=== PATIENT | male | born 1970 | race Caucasian/White ===

== ENCOUNTER 2023-10-13 10:19 | Inpatient (IN) | payer MEDICARE ==
[~2023-10-13] VITALS: Ht 180.3 cm; Wt 62.1 kg
[2023-10-13] MEDS ORDERED: PANT40TA49 PO (10:52)
[2023-10-13] MEDS ORDERED: HYDR-3976 PO (10:52)
[2023-10-13] MEDS ORDERED: LOSA25TA27 PO (10:52)
[2023-10-13 11:13] VITALS: O2SAT 100
[2023-10-13 11:24] LABS: POTASSIUM 3.7 mmol/L (3.5-5.1)
[2023-10-13 11:30] LABS: BASOPHILS % (AUTO) 0.3 % (0.0-2.0); EOSINOPHILS % (AUTO) 0.3 % (0.0-6.0); HEMATOCRIT 29 % (39-51); HEMOGLOBIN 9.6 g/dL (13.5-17.5); LYMPHOCYTES # (AUTO) 0.3 K/uL (0.8-4.8); LYMPHOCYTES % (AUTO) 7.5 % (20.0-44.0); MEAN CORPUSCULAR HEMOGLOBIN 36 PG (26.0-33.0); MEAN CORPUSCULAR HGB CONC 33 g/dl (31.0-36.0); MEAN CORPUSCULAR VOLUME 108 fL (80-96); MONOCYTES # (AUTO) 0.2 K/uL (0.1-1.30); MONOCYTES % (AUTO) 5.3 % (2.0-12.0); NEUTROPHILS # (AUTO) 3.5 K/uL (1.8-8.9); NEUTROPHILS % (AUTO) 86.6 % (43.0-81.0); PLATELET COUNT (AUTO) 124 K/uL (150-450); RED BLOOD CELL COUNT(AUTO) 2.71 MIL/uL (4.5-6.0); RED CELL DISTRIBUTION WIDTH 16.6 % (11.5-15.0); WHITE BLOOD COUNT (AUTO) 4.1 K/uL (4.3-11.0)
[2023-10-13] MEDS ORDERED: IOHEXOL 50 ML IV ONE ×2 (11:31→16:29)
[2023-10-13] MEDS ORDERED: LIDOCAINE 1% INJ 50 ML MDV IJ ONE (11:31)
[2023-10-13] MEDS ORDERED: HEPARIN SODIUM, PORCINE 1,000 UNIT/ML VIAL ONE ×3 (11:31→18:03)
[2023-10-13] MEDS ORDERED: ANESTHESIA TRAY IN PYXIS 1 EA TRAY MC ONE (11:31)
[2023-10-13 11:32] LABS: INR 1.3 (0.91-1.10); PARTIAL THROMBOPLASTIN TIME 36.7 SEC (24.3-34.3); PROTHROMBIN TIME 13.5 SECS (9.2-11.1)
[2023-10-13 11:33] LABS: CREATININE 7.8 mg/dL (0.6-1.3)
[2023-10-13 12:19] LABS: ANISOCYTOSIS 1+; EOSINOPHILS % (MANUAL) 1 % (0-4); LYMPHOCYTES % (MANUAL) 4 % (16-48); MONOCYTES % (MANUAL) 4 % (0-11.0); NEUTROPHILS % (MANUAL) 91 (42-76); PLATELET ESTIMATE DECREASED
[2023-10-13] MEDS ORDERED: MAG HYDROX/AL HYDROX/SIMETH 30 ML UDC PO PRN (13:00)
[2023-10-13] MEDS ORDERED: ACETAMINOPHEN 325 MG TABLET PO PRN (13:00)
[2023-10-13] MEDS ORDERED: MAGNESIUM HYDROXIDE 30 ML UDC PO PRN (13:00)
[2023-10-13] MEDS ORDERED: ONDANSETRON HCL/PF 4 MG/2 ML VIAL IVP PRN (13:00)
[2023-10-13] MEDS ORDERED: Z GUARD REMEDY 4 OZ OINT TP PRN (13:00)
[2023-10-13] MEDS ORDERED: GELATIN SPONGE,ABSORBABLE 1 SPONGE SPONGE TP ONE (15:32)
[2023-10-13] MEDS ORDERED: HYDROCODONE/APAP 5/325MG TABLET PO SCH (17:00)
[2023-10-13] MEDS ORDERED: BUPIVACAINE 0.5 % PF 150 MG/30 ML VIAL ONE (17:43)
[2023-10-13] MEDS ORDERED: FENTANYL PF 100MCG/2ML AMPUL ONE ×2 (18:27→18:47)
[2023-10-13 19:55] LABS: BASOPHILS % (AUTO) 0.4 % (0.0-2.0); HEMATOCRIT 36 % (39-51); HEMOGLOBIN 11.1 g/dL (13.5-17.5); LYMPHOCYTES # (AUTO) 0.3 K/uL (0.8-4.8); LYMPHOCYTES % (AUTO) 3.7 % (20.0-44.0); MEAN CORPUSCULAR HEMOGLOBIN 35 PG (26.0-33.0); MEAN CORPUSCULAR HGB CONC 31 g/dl (31.0-36.0); MEAN CORPUSCULAR VOLUME 113 fL (80-96); MONOCYTES # (AUTO) 0.2 K/uL (0.1-1.30); MONOCYTES % (AUTO) 2.2 % (2.0-12.0); NEUTROPHILS # (AUTO) 6.6 K/uL (1.8-8.9); NEUTROPHILS % (AUTO) 93.7 % (43.0-81.0); PLATELET COUNT (AUTO) 142 K/uL (150-450); RED BLOOD CELL COUNT(AUTO) 3.16 MIL/uL (4.5-6.0); RED CELL DISTRIBUTION WIDTH 17.4 % (11.5-15.0)
[2023-10-13 20:00] VITALS: BP 121/87; TEMP 97.6; O2SAT 98
[2023-10-13 20:03] LABS: POTASSIUM 3.8 mmol/L (3.5-5.1)
[2023-10-13 20:10] LABS: CREATININE 7.9 mg/dL (0.6-1.3)
[2023-10-13] MEDS: oxyCODONE/APAP (5/325 MG) 1 UDTAB TABLET PO PRN (20:19)
[2023-10-13] MEDS: SODIUM BICARBONATE SYR 50 MEQ/50 ML DISP.SYRIN IV ONE (20:46)
[2023-10-13 20:58] LABS: BAND % (MANUAL) 1 % (0.0-5.0); LYMPHOCYTES % (MANUAL) 8 % (16-48); MONOCYTES % (MANUAL) 4 % (0-11.0); NEUTROPHILS % (MANUAL) 87 (42-76); PLATELET ESTIMATE ADEQUATE
[2023-10-13 20:59] LABS: ANISOCYTOSIS 1+; OVALOCYTES RARE; ROULEAUX 1+
[2023-10-13] MEDS: MORPHINE SULFATE INJ 4 MG/ML DISP.SYRIN IV PRN (21:19)
[2023-10-13] MEDS: ANCEF 1 GM/50 ML D5W IV SCH (22:54)
[2023-10-14 07:22] LABS: BASOPHILS % (AUTO) 0.2 % (0.0-2.0); EOSINOPHILS % (AUTO) 0.3 % (0.0-6.0); HEMATOCRIT 28 % (39-51); HEMOGLOBIN 9.4 g/dL (13.5-17.5); LYMPHOCYTES # (AUTO) 0.3 K/uL (0.8-4.8); MEAN CORPUSCULAR HEMOGLOBIN 36 PG (26.0-33.0); MEAN CORPUSCULAR HGB CONC 34 g/dl (31.0-36.0); MEAN CORPUSCULAR VOLUME 106 fL (80-96); MONOCYTES # (AUTO) 0.2 K/uL (0.1-1.30); MONOCYTES % (AUTO) 5.7 % (2.0-12.0); NEUTROPHILS # (AUTO) 3.7 K/uL (1.8-8.9); NEUTROPHILS % (AUTO) 87.8 % (43.0-81.0); PLATELET COUNT (AUTO) 114 K/uL (150-450); RED BLOOD CELL COUNT(AUTO) 2.61 MIL/uL (4.5-6.0); WHITE BLOOD COUNT (AUTO) 4.2 K/uL (4.3-11.0)
[2023-10-14 07:52] LABS: ALBUMIN 2.2 g/dL (3.4-5.0); BILIRUBIN,TOTAL 0.3 mg/dL (0.2-1.0); CALCIUM, SERUM 6.7 mg/dL (8.5-10.1); POTASSIUM 2.9 mmol/L (3.5-5.1); TOTAL PROTEIN, SERUM 6.1 g/dL (6.4-8.2)
[2023-10-14 08:00] VITALS: BP 118/85; TEMP 97.7; O2SAT 100
[2023-10-14 08:31] VITALS: BP 118/85
[2023-10-14] MEDS: LOSARTAN POTASSIUM 25 MG TABLET PO SCH (08:31)
[2023-10-14] MEDS: PANTOPRAZOLE 40 MG TABLET.DR PO SCH (08:31)
[2023-10-14] MEDS ORDERED: MORPHINE SULFATE INJ 2 MG/ML DISP.SYRIN IM ONE (11:00)
[2023-10-14] MEDS: POTASSIUM CHLORIDE 20 MEQ TAB.PRT.SR PO ONE (11:24)
[2023-10-14] MEDS: MORPHINE SULFATE INJ 2 MG/ML DISP.SYRIN IV ONE (11:24)
[2023-10-14 11:49] LABS: ANISOCYTOSIS 1+; LYMPHOCYTES % (MANUAL) 6 % (16-48); MONOCYTES % (MANUAL) 4 % (0-11.0); NEUTROPHILS % (MANUAL) 90 (42-76); PLATELET ESTIMATE DECREASED
[2023-10-15 06:07] LABS: HEPATITIS B SURFACE AB Reactive (.)
== END 2023-10-14 14:15 | disposition home or self-care (01) | DRG 252 ==
LOC: ER 10:19 → MED 13:20
PROVIDERS: ADMIT Internal Medicine; ATTEND Student in an Organized Health Care Education/Training Program
PROC: 5A1D70Z Performance of Urinary Filtration, Intermittent, Less than 6 Hours Per Day (ICD-10-PCS; principal; 2023-10-13)
PROC: 04CK0ZZ Extirpation of Matter from Right Femoral Artery, Open Approach (ICD-10-PCS; 2023-10-13)
PROC: 04WY0JZ Revision of Synthetic Substitute in Lower Artery, Open Approach (ICD-10-PCS; 2023-10-13)
PROC: B51WYZZ Fluoroscopy of Dialysis Shunt/Fistula using Other Contrast (ICD-10-PCS; 2023-10-13)
PROC: 067 Lower Veins, Dilation (ICD-10-PCS; 2023-10-14)
PROC: 0JHL3XZ Insertion of Tunneled Vascular Access Device into Right Upper Leg Subcutaneous Tissue and Fascia, Percutaneous Approach (ICD-10-PCS; 2023-10-14)
PROC: 06HM33Z Insertion of Infusion Device into Right Femoral Vein, Percutaneous Approach (ICD-10-PCS; 2023-10-14)
PROC: B54BZZA Ultrasonography of Right Lower Extremity Veins, Guidance (ICD-10-PCS; 2023-10-14)
DX: T82.590A Other mechanical complication of surgically created arteriovenous fistula, initial encounter (principal); N18.6 End stage renal disease; E87.1 Hypo-osmolality and hyponatremia; I12.0 Hypertensive chronic kidney disease with stage 5 chronic kidney disease or end stage renal disease; D61.818 Other pancytopenia; J98.11 Atelectasis; E87.20 Acidosis, unspecified; E44.0 Moderate protein-calorie malnutrition; Y83.2 Surgical operation with anastomosis, bypass or graft as the cause of abnormal reaction of the patient, or of later complication, without mention of misadventure at the time of the procedure; Y92.9 Unspecified place or not applicable; D63.8 Anemia in other chronic diseases classified elsewhere; D69.6 Thrombocytopenia, unspecified; Z20.822 Contact with and (suspected) exposure to COVID-19; M89.8X9 Other specified disorders of bone, unspecified site; Z87.19 Personal history of other diseases of the digestive system; Z79.899 Other long term (current) drug therapy; Z99.2 Dependence on renal dialysis; E87.6 Hypokalemia
CPT/HCPCS: 36415; 71045-TC; 80048-TC; 80053-TC; 83605-TC; 85025-TC; 85730-TC; 86706; 87340; 88304-TC; 90935-TC; 93926-TC; 93971-TC; A4223; A6209; A6253; C1725; C1750; C1757; C1769; C1781; C1894; G0378; J0690; J1644; J2270; J2704; J3010; J3490; J7030; J7040; J7060; Q9967

== ENCOUNTER 2025-03-20 14:10 | Inpatient (IN) | payer MEDICARE, OTHER ==
[~2025-03-20] VITALS: Ht 180.3 cm; Wt 53.1 kg
[~2025-03-20 14:10] MED LIST: HYDR-3976 PO; LOSA25TA27 PO; PANT40TA49 PO
[2025-03-20] MEDS ORDERED: HYDR-3980 PO (14:58)
[2025-03-20] MEDS ORDERED: APIX2.5T PO (14:58)
[2025-03-20] MEDS ORDERED: TPN (14:58)
[2025-03-20] MEDS ORDERED: oxyCODONE/APAP (5/325 MG) 1 UDTAB TABLET ONE ×2 (15:03→15:16)
[2025-03-20] MEDS: oxyCODONE/APAP (5/325 MG) 1 UDTAB TABLET PO ONE ×2 (15:18)
[2025-03-20 15:19] LABS: BASOPHILS % (AUTO) 0.8 % (0.0-2.0); EOSINOPHILS % (AUTO) 0.3 % (0.0-6.0); HEMATOCRIT 31 % (39-51); HEMOGLOBIN 10.3 g/dL (13.5-17.5); LYMPHOCYTES # (AUTO) 0.4 K/uL (0.8-4.8); LYMPHOCYTES % (AUTO) 24.7 % (20.0-44.0); MEAN CORPUSCULAR HEMOGLOBIN 35 PG (26.0-33.0); MEAN CORPUSCULAR HGB CONC 33 g/dl (31.0-36.0); MEAN CORPUSCULAR VOLUME 105 fL (80-96); MONOCYTES # (AUTO) 0.1 K/uL (0.1-1.30); MONOCYTES % (AUTO) 6.1 % (2.0-12.0); NEUTROPHILS # (AUTO) 1.2 K/uL (1.8-8.9); NEUTROPHILS % (AUTO) 68.1 % (43.0-81.0); RED BLOOD CELL COUNT(AUTO) 2.97 MIL/uL (4.5-6.0); RED CELL DISTRIBUTION WIDTH 21.4 % (11.5-15.0)
[2025-03-20 15:23] LABS: CALCIUM, SERUM 7.4 mg/dL (8.5-10.1); CREATININE 5.1 mg/dL (0.6-1.3); POTASSIUM 4.6 mmol/L (3.5-5.1)
[2025-03-20 15:25] LABS: WHITE BLOOD COUNT (AUTO) 1.7 K/uL (4.3-11.0)
[2025-03-20 15:26] LABS: INR 1.29 (0.91-1.10); PARTIAL THROMBOPLASTIN TIME 35.5 SEC (24.3-34.3); PLATELET COUNT (AUTO) 36 K/uL (150-450); PROTHROMBIN TIME 13.4 SECS (9.2-11.1)
[2025-03-20 16:30] VITALS: BP 112/59; TEMP 97.9; O2SAT 100
[2025-03-20] MEDS ORDERED: Z GUARD REMEDY 4 OZ OINT TP PRN (16:30)
[2025-03-20] MEDS ORDERED: ACETAMINOPHEN 325 MG TABLET PO PRN (16:30)
[2025-03-20] MEDS ORDERED: ONDANSETRON HCL/PF 4 MG/2 ML VIAL IVP PRN (16:30)
[2025-03-20] MEDS ORDERED: MAGNESIUM HYDROXIDE 30 ML UDC PO PRN (16:30)
[2025-03-20] MEDS ORDERED: MAG HYDROX/AL HYDROX/SIMETH 30 ML UDC PO PRN (16:30)
[2025-03-20 17:30] LABS: LYMPHOCYTES % (MANUAL) 28 % (16-48); MONOCYTES % (MANUAL) 8 % (0-11.0); NEUTROPHILS % (MANUAL) 64 (42-76); PLATELET ESTIMATE DECREASED
[2025-03-20 17:31] LABS: ANISOCYTOSIS 1+
[2025-03-20 20:00] VITALS: BP 120/53; TEMP 97.9; O2SAT 99
[2025-03-20] MEDS: oxyCODONE/APAP (5/325 MG) 1 UDTAB TABLET PO PRN (20:21)
[2025-03-21] MEDS ORDERED: KETOROLAC TROMETHAMINE 15 MG/ML VIAL IV PRN (04:00)
[2025-03-21] MEDS: MORPHINE SULFATE INJ 2 MG/ML DISP.SYRIN IV PRN (04:14)
[2025-03-21 07:37] LABS: CALCIUM, SERUM 7.6 mg/dL (8.5-10.1); MAGNESIUM 1.5 mg/dL (1.8-2.4); PHOSPHORUS 6.2 mg/dL (2.5-4.9); POTASSIUM 4.8 mmol/L (3.5-5.1)
[2025-03-21 08:00] VITALS: BP 118/60; TEMP 97.5; O2SAT 100
[2025-03-21] MEDS: PANTOPRAZOLE 40 MG TABLET.DR PO SCH (08:04)
[2025-03-21 09:14] LABS: BASOPHILS % (AUTO) 0.3 % (0.0-2.0); EOSINOPHILS % (AUTO) 0.6 % (0.0-6.0); HEMATOCRIT 28 % (39-51); LYMPHOCYTES # (AUTO) 0.4 K/uL (0.8-4.8); LYMPHOCYTES % (AUTO) 29.7 % (20.0-44.0); MEAN CORPUSCULAR HEMOGLOBIN 35 PG (26.0-33.0); MEAN CORPUSCULAR HGB CONC 32 g/dl (31.0-36.0); MEAN CORPUSCULAR VOLUME 110 fL (80-96); MONOCYTES # (AUTO) 0.1 K/uL (0.1-1.30); MONOCYTES % (AUTO) 6.9 % (2.0-12.0); NEUTROPHILS # (AUTO) 0.9 K/uL (1.8-8.9); NEUTROPHILS % (AUTO) 62.5 % (43.0-81.0); RED BLOOD CELL COUNT(AUTO) 2.56 MIL/uL (4.5-6.0); RED CELL DISTRIBUTION WIDTH 22.2 % (11.5-15.0)
[2025-03-21] MEDS: HYDROMORPHONE 1 MG/1 ML DISP.SYRIN IV PRN (09:21)
[2025-03-21 09:50] LABS: PLATELET COUNT (AUTO) 41 K/uL (150-450); WHITE BLOOD COUNT (AUTO) 1.5 K/uL (4.3-11.0)
[2025-03-21] MEDS ORDERED: HEPARIN SODIUM, PORCINE 1,000 UNIT/ML VIAL ONE (10:16)
[2025-03-21] MEDS ORDERED: LIDOCAINE HCL/MPF 1% 30 ML VIAL IJ ONE (10:16)
[2025-03-21] MEDS ORDERED: BACITRACIN ZINC OINT (15 GM) 15 GM TUBE TP ONE (13:09)
[2025-03-21] MEDS ORDERED: FENTANYL PF 100MCG/2ML AMPUL ONE (13:38)
[2025-03-21] MEDS ORDERED: CEPH-570 PO (14:29)
[2025-03-21 14:53] LABS: LYMPHOCYTES % (MANUAL) 24 % (16-48); MONOCYTES % (MANUAL) 3 % (0-11.0); NEUTROPHILS % (MANUAL) 73 (42-76)
[2025-03-21 14:55] LABS: ANISOCYTOSIS 1+
[2025-03-21] MEDS ORDERED: ANCEF 1 GM/50 ML D5W IV SCH (20:00)
== END 2025-03-21 15:30 | disposition home or self-care (01) | DRG 698 ==
LOC: ER 14:15 → MED 15:44
PROVIDERS: ADMIT Internal Medicine; ATTEND Internal Medicine
PROC: 0J2WXYZ Change Other Device in Lower Extremity Subcutaneous Tissue and Fascia, External Approach (ICD-10-PCS; principal; 2025-03-20)
PROC: B519YZA Fluoroscopy of Inferior Vena Cava using Other Contrast, Guidance (ICD-10-PCS; 2025-03-21)
DX: T82.41XA Breakdown (mechanical) of vascular dialysis catheter, initial encounter (principal); N18.6 End stage renal disease; D61.818 Other pancytopenia; I12.0 Hypertensive chronic kidney disease with stage 5 chronic kidney disease or end stage renal disease; K90.829 Short bowel syndrome, unspecified; Z99.2 Dependence on renal dialysis; G89.4 Chronic pain syndrome; K21.9 Gastro-esophageal reflux disease without esophagitis; D63.8 Anemia in other chronic diseases classified elsewhere; Z79.01 Long term (current) use of anticoagulants; Y84.8 Other medical procedures as the cause of abnormal reaction of the patient, or of later complication, without mention of misadventure at the time of the procedure; Y92.009 Unspecified place in unspecified non-institutional (private) residence as the place of occurrence of the external cause
CPT/HCPCS: 36415; 71045-TC; 74018; 80048-TC; 82962-TC; 83735-TC; 84100-TC; 85025-TC; 85730-TC; 86850-TC; 87081-TC; G0378; J0690; J1171; J1644; J2270; J2704; J3010; J3490; J7030; J7060